=== PATIENT | male | born 1940 | race Caucasian/White ===

== ENCOUNTER 2018-02-02 09:47 | Outpatient (CLI) | payer MEDICARE, OTHER ==
[~2018-02-02] VITALS: Ht 175.3 cm; Wt 76.2 kg
[2018-02-02] MEDS ORDERED: LOSA100T6 PO (10:00)
[2018-02-02 10:10] LABS: BASO # 0.1 x10^3/uL (0.0-0.2); BASO % 1 % (0-3); EOS # 0.1 x10^3/uL (0.0-0.7); EOS % 2 % (0-3); HEMATOCRIT 45.7 % (39.0-53.0); HEMOGLOBIN 15.6 g/dL (13.0-17.5); LYMPH # 1.9 x10^3/uL (1.0-4.8); LYMPH % 30 % (24-48); MEAN CORPUSCULAR HEMOGLOBIN 29 pg (25-35); MEAN CORPUSCULAR HGB CONC 34 g/dL (31-37); MEAN CORPUSCULAR VOLUME 85 fL (79-100); MONO # 0.7 x10^3/uL (0.0-1.1); MONO % 10 % (0-9); NEUT # 3.5 x10^3uL (1.8-7.7); NEUT % 56 % (31-73); PLATELET COUNT 249 x10^3/uL (140-400); RED BLOOD COUNT 5.37 x10^6/uL (4.30-5.70); RED CELL DISTRIBUTION WIDTH 13.9 % (11.5-14.5); WHITE BLOOD COUNT 6.3 x10^3/uL (4.0-11.0)
[2018-02-02 10:17] LABS: CALCIUM 9.5 mg/dL (8.5-10.1); CREATININE 1.1 mg/dL (0.7-1.3); GFR 65.1; POTASSIUM 3.6 mmol/L (3.5-5.1)
[2018-02-02 10:22] LABS: ALBUMIN 4.3 g/dL (3.4-5.0); ALBUMIN/GLOBULIN RATIO 1.2 (1.0-1.7); TOTAL BILIRUBIN 0.8 mg/dL (0.2-1.0)
[2018-02-02 10:23] VITALS: BP 185/92
[2018-02-02 10:32] LABS: PROTHROMBIN TIME PATIENT 12.8 SEC (11.7-14.0)
[2018-02-02] MEDS ORDERED: LIDOCAINE WITH 8.4% SOD BICARB 3 ML DISP.SYRIN. ONE (11:02)
[2018-02-02 11:35] VITALS: BP 186/89
[2018-02-02] MEDS ORDERED: LIDOCAINE WITH 8.4% SOD BICARB 3 ML DISP.SYRIN. IJ ONE (11:45)
[2018-02-02 11:50] VITALS: BP 170/85
[2018-02-02 12:13] VITALS: BP 154/80
--- NOTE | 2018-02-02 15:43 | RAD ---
Ultrasound-guided biopsy, left inguinal lymph node 02/02/2018 Indication: Left inguinal lymph node, abnormally enlarged. Atypical morphology. Discussion: The risks and benefits of the procedure were discussed the patient. Informed consent was obtained. A timeout procedure was performed. The left groin is prepped and draped using sterile barrier technique. Ultrasound evaluation demonstrated an irregular mass in the left groin consistent with a enlarged lymph node in left groin measuring approximately 3.0 x 1.5 cm. 1% lidocaine was administered the overlying skin and subcutaneous tissues. Under direct ultrasound guidance an 18-gauge automated needle was used to obtain core biopsy samples which were placed in formalin and RPMI fluid. Manual pressure was held following the biopsy. No immediate complications were identified. A sterile dressing was applied. Impression: Ultrasound-guided biopsy, left inguinal mass likely an enlarged, abnormal lymph node
--- NOTE | 2018-02-05 16:09 | PATHOLOGY ---
[facility] Accession Number: [id number] . 01 Material submitted: . LEFT LYMPH INGUINAL MASS BIOPSY . 01 Clinical history: . Left inguinal mass . 02 Diagnosis: "Left lymph inguinal mass BX", image guided needle biopsy. - Lymph node with atypical lymphoid infiltrate (see comment). [facility]/02/05/2018 . 02 Comment: Sections show needle core biopsy fragments of lymph node with an atypical lymphoid infiltrate. Occasional irregular follicles demonstrating possible partially sampled germinal centers are identified. There is an expansion of the inner follicular space. Scattered large atypical lymphoid cells with variably conspicuous to prominent nucleoli and moderate cleared out cytoplasm are noted. Admixed histiocytes are also seen. No classic Frank-Jackie cells are identified. . To further evaluate the larger atypical cells, properly controlled immunohistochemical stains are performed. . Block A1 CD20 - large atypical cells reactive, also stains B-cell follicles CD3 - stains admixed interfollicular T-cells CD5 - stains T-cells similar to CD3 CD10 - highlights a rare residual germinal center BCL6 - large atypical cells appear reactive, also stains residual germinal centers BCL2 - T-cell and partial B-cell staining CD23 - stains rare small collections of cells within follicles Cyclin D1 - lacks diffuse nuclear staining CD30 - essentially nonreactive CD15 - large atypical cells nonreactive PAX5 - large atypical cells appear reactive, also highlights B-cell follicles MUM1 - stains rare scattered small cells, large atypical cells appear nonreactive ALK1 - nonreactive KASHIF - essentially nonreactive CD4 - diffusely stains the T-cells and histiocytes CD57 - stains occasional scattered small cells . Block A2 CD20 - large atypical cells reactive, also stains B-cell follicles CD3 - stains interfollicular T-cells CD5 - stains interfollicular T-cells similar to CD3 CD10 - stains partially sampled follicles/germinal centers BCL2 - stains T-cells and focal B-cells, the follicle/germinal center appears nonreactive CD23 - minimal residual dendritic cell meshworks Cyclin D1 - lacks diffuse nuclear staining . Flow cytometric immunophenotypic analysis was performed at [facility]. The diagnosis is "no immunophenotypic evidence of non-Hodgkin lymphoma." There are 95.9% lymphocytes. Of the lymphocytes, there are 82% T-cells with a CD4/CD8 ratio of 3.7 and no aberrant T-cell antigen expression and 12% polyclonal mature B-cells (kappa lambda ratio of 2.0). Due to the low cellularity, a limited flow cytometry panel is performed. B-cells are plyclonal and T-cells have no loss of T-cell antigens. There is no flow immunophenotypic evidence of a B or T-cell lymphoproliferative disorder. Please see separate flow cytometry report from [facility] ([id number]). . Overall the diagnosis is lymph node with an atypical lymphoid infiltrate. The large atypical cells raise a concern for a partially sampled Hodgkin lymphoma. Of note, this is a small portion of a larger lesion and may not be entirely access representative. Excisional biopsy for complete morphologic evaluation of the involved lymph node may provide additionally information, if clinically indicated. Clinical and radiographic correlation is required. . [employer] slides are co-reviewed with Dr. Broderick Curry. The case was discussed with Dr. Miller by Dr. Broderick Curry on 02/05/2018 in the morning. (CLW:isabel 02/05/2018) . 02 Electronically signed: . Pamela Joy MD, Pathologist NPI- [id number] . 01 Gross description: . The specimen is received in formalin, labeled "Hattok, Jame and left lymph node lingual", are two verma soft needle cores, 1.6 cm and 1.7 cm in length and up to 0.1 cm in diameter. The specimen is entirely submitted in A1-A2. ([facility]; 02/02/2018) SHS/SHS . 02 Pathologist provided ICD-10: I88.9, R19.09 . 02 CPT . 21619, C36144, [id number] Performed at: 01 [facility] [address], [place], [place] [id number] MD Jace Cee MD Phone: [phone] Performed at: [address] [id number] MD Robert Hidalgo MD Phone: [phone]
== END 2018-02-02 12:30 | disposition home or self-care (01) ==
LOC: INTRAD 09:47
PROVIDERS: ATTEND Surgery
DX: R59.0 Localized enlarged lymph nodes (principal); Z79.01 Long term (current) use of anticoagulants; Z88.8 Allergy status to other drugs, medicaments and biological substances
CPT/HCPCS: 36415; 38505; 76942; 80053; 85025; 85610; 88184; 88185

== ENCOUNTER 2018-03-22 09:42 | Day surgery (SDC) | payer MEDICARE, OTHER ==
[~2018-03-22 09:42] MED LIST: LOSA100T7 PO
[2018-03-22] MEDS ORDERED: BUPIVAC MPF-EPI 0.5%-1:200000 30 ML VIAL. ONE (10:15)
[2018-03-22] MEDS ORDERED: CEPH-264 PO (10:19)
[2018-03-22] MEDS ORDERED: AMOX1TAB10 PO (10:21)
[2018-03-22] MEDS ORDERED: IV RINGERS,LACTATED 1000ML 1,000 ML IV SCH ×2 (10:30→10:35)
[2018-03-22] MEDS ORDERED: fentaNYL PF VIAL 100 MCG/2 ML VIAL IV PRN ×2 (10:45)
[2018-03-22] MEDS ORDERED: HYDROmorphone 2 MG/ML VIAL IV PRN (10:45)
[2018-03-22] MEDS ORDERED: PROCHLORPERAZINE 10 MG/2 ML VIAL. IV PRN (10:45)
[2018-03-22] MEDS ORDERED: MORPHINE SULFATE 2 MG/ML VIAL. IV PRN (10:45)
[2018-03-22] MEDS ORDERED: LIDOCAINE 1% PF 2 ML VIAL. ID PRN (10:45)
[2018-03-22] MEDS ORDERED: ONDANSETRON PF 4 MG/2 ML VIAL. IV PRN (10:45)
[2018-03-22] MEDS ORDERED: LIDOCAINE 2% PF Vial for OR 5 ML VIAL. ONE (10:48)
[2018-03-22] MEDS ORDERED: DEXAMETHASONE SOD PHOS 20 MG/5 ML VIAL. ONE (10:48)
[2018-03-22] MEDS ORDERED: PROPOFOL 20 ML IV ONE (10:48)
[2018-03-22] MEDS ORDERED: ONDANSETRON PF 4 MG/2 ML VIAL. ONE (10:48)
[2018-03-22] MEDS ORDERED: fentaNYL PF VIAL 100 MCG/2 ML VIAL ONE (10:48)
[2018-03-22] MEDS ORDERED: BACITRACIN TOPICAL OINT 14GM TUBE. TP ONE (10:57)
[2018-03-22] MEDS ORDERED: PHENYLEPHRINE in 0.9% NACL PF 1 MG/10 ML SYRINGE. IV ONE (11:43)
[2018-03-22] MEDS ORDERED: SEVOFLURANE 16 TO 30 MINUTES. IH ONE (12:00)
--- NOTE | 2018-03-22 12:19 | PDOC ---
BRIEF OPERATIVE NOTE Date: Mar 22, 2018 Pre-Op Diagnosis left inguinal seroma Post-Op Diagnosis same Procedure Performed wound exploration Surgeon Paul Anesthesia Type: General Blood Loss 5cc IV Fluid 300cc Specimens Obtained cultures Findings serous fluid, proteinaceous debris, no purulence Complications none Operative Note Wk # [id number] MICHAEL ESPINAL MD Mar 22, 2018 12:19
--- NOTE | 2018-03-22 12:24 | DISCH ---
DISCHARGE INSTRUCTIONS Condition on Discharge Condition on Discharge: Stable Activity After Discharge Activity Instructions for Disc: Resume previous activity, Activity as tolerated Lifting Instructions after Dis: No heavy lifting Driving Instructions after Dis: Do not drive today Diet after Discharge Diet after Discharge: Regular Wound Incision Care Wound/Incision Care: Ice to area for comfort Follow-Up Follow up with: Paul tomorrow for dressing change MICHAEL ESPINAL MD Mar 22, 2018 12:24
[2018-03-22 13:00] VITALS: BP 148/78
--- NOTE | 2018-03-22 13:52 | OP ---
DATE OF SURGERY: 03/22/2018 PREOPERATIVE DIAGNOSIS: Left inguinal seroma. POSTOPERATIVE DIAGNOSIS: Left inguinal seroma. PROCEDURE: Wound exploration. SURGEON: Michael Espinal MD ANESTHESIA: General LMA. ESTIMATED BLOOD LOSS: 5 INTRAVENOUS FLUID: 300 INDICATIONS: The patient is postop excision of left inguinal node. He has had persistent erythema and drainage from his wound. The erythema was improved this morning after starting on Augmentin; however, he and I decided it would be best to open the wound for adequate drainage. DESCRIPTION OF PROCEDURE: The patient brought to the operating suite, given a general LMA and the left groin was prepped and draped in usual sterile fashion. The side of drainage was probed with a hemostat and the small incision in the skin opened. Fluid evacuated. Cavity cultured. It was then irrigated and checked for adequate hemostasis. When present and a correct sponge count was obtained, the wound was dressed with 1-inch plain Nu Gauze soaked in saline and antibiotic ointment. Sterile dressing applied. The patient was awakened from his anesthetic and taken to the recovery room in satisfactory condition. MICHAEL ESPINAL MD DR: DONNIE/micheal JOB#: [id number] / [id number]
== END 2018-03-22 13:00 | disposition home or self-care (01) ==
LOC: SURG 09:42
PROVIDERS: ATTEND Surgery
DX: L76.34 Postprocedural seroma of skin and subcutaneous tissue following other procedure (principal); E55.9 Vitamin D deficiency, unspecified; Z98.890 Other specified postprocedural states; Z79.899 Other long term (current) drug therapy; Z90.79 Acquired absence of other genital organ(s); Z72.89 Other problems related to lifestyle; Z88.8 Allergy status to other drugs, medicaments and biological substances; Y83.8 Other surgical procedures as the cause of abnormal reaction of the patient, or of later complication, without mention of misadventure at the time of the procedure
CPT/HCPCS: 10140; 87071; 87075; A7015; J1100; J2001; J2370; J2405; J2704; J3010; J3490

== ENCOUNTER → 2021-05-28 | Outpatient (CLI) | payer MEDICARE, OTHER ==
[~2021-05-28] MED LIST changes: +AMOX1TAB10 PO; +CEPH-264 PO; +LOSA100T14 PO; -LOSA100T7 PO
--- NOTE | 2021-05-29 16:08 | PATHOLOGY ---
[facility] Accession Number: [id number] . 01 Material submitted: . cheek - RIGHT CHEEK. Modifiers: right . 01 Clinical history: . EXCISION BASAL CELL CARCINOMA . 02 Diagnosis: Skin (right cheek lesion): - Actinic keratosis, dermal scar and mixed chronic inflammation. (MERY:nicky; 05/29/2021) R 05/29/2021 1449 Local . 02 Comment: We find no evidence of residual basal cell carcinoma. (MERY:nicky; 05/29/2021) . 02 Electronically signed: . Robert Hidalgo MD, Pathologist NPI- [id number] . 01 Gross description: . The specimen is received in formalin, labeled "Jame Heart, R chejorge". Received is an oriented ellipse of skin measuring 1.4 x 1.1 x 0.5 cm in greatest dimension, with a long suture placed at one tip which will arbitrarily be designated as 12:00 and a short suture placed along one edge which will arbitrarily be designated as 3:00. The epidermal surface displays a poorly defined, depressed, pale white and wrinkled lesion measuring 0.6 x 0.4 cm. The surgical margins are inked as follows: 12:00-3:00-yellow, 3:00-6:00-blue, 6:00-12:00-black. The specimen is sectioned into 7 pieces and entirely submitted in cassettes A1-A2, with the 12:00 and 6:00 aspects placed in cassette A2. ([facility]; 05/28/2021) NRI/NRI 05/28/2021 1917 Local . 02 Pathologist provided ICD-10: L57.0 . 02 CPT . 643695 Specimen Comment: A courtesy copy of this report has been sent to [phone] Specimen Comment: Report sent to [facility]formed at: 01 [facility] [address] [id number] MD Charles Padilla MD Phone: [phone] Performed at: 02 [facility] [address] [id number] MD Robert Hidalgo MD Phone: [phone]
== END ==
LOC: SPEC 08:50
PROVIDERS: ATTEND Plastic Surgery
DX: C44.319 Basal cell carcinoma of skin of other parts of face (principal)
CPT/HCPCS: 88305